=== PATIENT | male | born 1985 | race Caucasian/White ===

== ENCOUNTER 2019-10-14 18:10 | Emergency (ER) | payer SELFPAY ==
--- NOTE | ~2019-10-14 | XR_ITS ---
XR knee LT min 4V 10/14/2019 18:56 INDICATION: Left knee pain PROCEDURE: 4 views left knee COMPARISON: No prior studies for comparison. FINDINGS: Fracture, dislocation or subluxation is not identified. Small joint effusion. The soft tiss ues appear within normal limits. No foreign bodies are identified. IMPRESSION: 1: NO ACUTE BONE OR JOINT ABNORMALITY IDENTIFIED. Reviewed, dictated and finalized at location A. UREMENT CLERK
[2019-10-14 18:22] VITALS: BP 143/82; PULSE 102; RESP 18; TEMP 36.7; O2SAT 99
--- NOTE | 2019-10-14 19:10 | ED.LOWEXIN ---
HPI - Extremity Injury (Lower) General Chief Complaint: Extremity Injury, Lower Stated Complaint: Knee Pain Time Seen by Provider: 10/14/19 19:10 Source: patient Mode of arrival: ambulatory Limitations: no limitations History of Present Illness HPI Narrative: Eamon Bhatti is a 33 yo male with no PMH who comes to express care with c/o L knee pain. Playing around with friend and twisted knee. Related Data Allergies Allergy/AdvReac Type Severity Reaction Status Date / Time No Known Allergies Allergy Verified 10/14/19 18:13 Review of Systems Review of Systems: Narrative: CONSTITUTIONAL: Denies fever, chills, sweats. EYES: Denies visual changes, redness, discharge. ENT: Denies rhinorrhea, congestion, sore throat, otalgia. CARDIOVASCULAR: Denies chest pain, palpitations, edema. RESPIRATORY: Denies dyspnea, wheezing, cough GASTROINTESTINAL: Denies abdominal pain, nausea, vomiting, diarrhea. GENITOURINARY: Denies dysuria, hematuria, abnormal discharge SKIN: Denies rash or itching. NEUROLOGIC: Denies numbness, or focal weakness. PSYCHIATRIC: Denies anxiety or depression. Extremities: Left knee pain, pain on walking PMFSH Family History Family History (Updated 10/14/19 @ 19:16 by Yoana Flores CNP) Other No active medical problems Social History Social History (Updated 10/14/19 @ 19:16 by Yoana Flores CNP) Smoking status: Never smoker Alcohol intake: never Gender identity (if verbalized by the patient): Male Comments At time of signature, I agree with nursing past medical, surgical, social and family history. There is no relevant family history pertinent to the presenting complaint. Exam Narrative: Exam Narrative: GENERAL: This is a well-nourished, well-developed patient, in no apparent distress. HEAD: normocephalic, atraumatic. EYES: PERRL. Sclera clear/white. Vision is grossly intact. EARS: External ears normal, a. Hearing grossly intact. NOSE: External nose normal with no obvious nasal discharge, nares without redness, no rhinorrhea. THROAT: Mucous membranes moist, posterior pharynx clear. NECK: Neck supple, non-tender CARDIOVASCULAR: Regular rate and rhythm without murmurs, gallops, or rubs. RESPIRATORY: Clear to auscultation. Breath sounds equal bilaterally. No wheezes, rales, or rhonchi. GASTROINTESTINAL: Abdomen soft, non-tender, nondistended. SKIN: warm, intact with no suspicious lesions or rash, good texture and turgor. NEURO: awake, alert, and oriented to person, place and time. There were no obvious focal neurologic abnormalities. Steady gait EXTREMITIES: Normal range of motion. Pain on movement of left knee, pain on walking BACK: Nontender without deformity or crepitance. N Course Course Emergency Course: [id number] for acute pathology Elevated blood pressure noted-recommended follow-up Vital Signs Vital signs: Vital Signs Temperature 98.1 F 10/14/19 18:22 Pulse Rate 102 H 10/14/19 18:22 Respiratory Rate 18 10/14/19 18:22 Blood Pressure 143/82 H 10/14/19 18:22 Pulse Oximetry 99 10/14/19 18:22 Temperature 98.1 F 10/14/19 18:22 Pulse Rate 102 H 10/14/19 18:22 Respiratory Rate 18 10/14/19 18:22 Blood Pressure 143/82 H 10/14/19 18:22 Pulse Oximetry 99 10/14/19 18:22 MDM - Extremity Injury (Lower) Differential Diagnosis Differential diagnosis: Likely other (Left knee pain versus sprain versus tendon rupture) Discharge Plan Discharge Clinical Impression: Left knee sprain Qualifiers: Encounter type: initial encounter Involved ligament of knee: medial collateral ligament Qualified Code(s): S83.412A - Sprain of medial collateral ligament of left knee, initial encounter Patient Disposition: Home, Self-Care Condition: Stable Instructions: Knee Sprain (DC) Prescriptions: New ibuprofen 800 mg tablet 800 mg PO Q6H PRN (Reason: pain) Qty: 30 RF: 0 Follow-up/Referrals: UNKNOWN,DOCTOR [Primary Care Provider] - Stand
== END 2019-10-14 19:33 | disposition home or self-care (01) ==
PROVIDERS: Emergency Provider Nurse Practitioner
DX: S83.412A Sprain of medial collateral ligament of left knee, initial encounter (principal); X50.9XXA Other and unspecified overexertion or strenuous movements or postures, initial encounter
CPT/HCPCS: 73564; 99203; G0463

== ENCOUNTER 2019-11-25 19:20 | Emergency (ER) | payer SELFPAY ==
--- NOTE | ~2019-11-25 | US_ITS ---
EXAMINATION: US scrotum doppler EXAM DATE: 11/25/2019 20:39 INDICATION: Testicular pain. Left-sided. TECHNIQUE: Multiple grayscale and Doppler images of the testicles and scrotum were obtained bilateral ly. Comparison is made to prior examination from 03/19/2015. FINDINGS: Right testicle measures 5.0 x 2.1 x 3.3 cm and is morphologically normal. Low resistance Doppler brayden w confirmed. The epididymis is unremarkable. There is no hydrocele or varicocele. Left testicle measures 4.4 x 2.1 x 3.1 cm and is morphologically normal. Low resistance Doppler flow confirmed. The epididymis is edematous and hypervascular. There is no hydrocele or varicocele. IMPRESSION: 1. Left-sided epididymitis. Reviewed, dictated and finalized at location A. IMPRESSION: 1. Left-sided epididymitis.
[2019-11-25 19:27] VITALS: BP 124/94; PULSE 98; RESP 18; TEMP 36.7; O2SAT 100
--- NOTE | 2019-11-25 19:43 | ED.MALEGU ---
HPI - Male Genitourinary General Chief complaint: Urogenital-Male Stated complaint: testicle pain Time Seen by Provider: 11/25/19 19:22 Source: patient Mode of arrival: ambulatory Limitations: no limitations History of Present Illness HPI Narrative: The pt is a 33 y/o male who presents to the ED c/o left testicle pain onset 2-4 days ago. Pt staets that the pain improves when he sits down and worsens when he is moving. Pt notes that he discovered swelling there today. Pt denies dysuria, hematuria, fever, chills, productive cough, penile discharge, and difficulty with bowel movements. Pt also denies any STD concerns. Complaint: testicle pain Onset (ago): day(s) (2-4) Location: left testicle Relieving factors: other (Sitting down) Exacerbating factors: movement Associated symptoms: Reports swelling (Left testicle) Related Data Allergies Allergy/AdvReac Type Severity Reaction Status Date / Time No Known Allergies Allergy Verified 11/25/19 19:30 Review of Systems Review of Systems: All systems reviewed & are unremarkable except as noted in HPI and below Constitutional: Constitutional: Denies chills and Denies fever(s) Respiratory: Respiratory: Denies cough (Productive) Gastrointestinal: Gastrointestinal: Denies other (Difficulty with bowel movements) Genitourinary: Genitourinary: Denies hematuria, Denies dysuria, Denies penile discharge, Reports testicular pain (Left) and Reports other (Left testicular swelling) PMFSH Past Medical History Medical History (Updated 11/25/19 @ 21:24 by Simeon Leiva MD) No active medical problems Surgical History Surgical History (Updated 11/25/19 @ 19:46 by Leoncio Mendoza) No history of previous surgery Family History Family History (Updated 10/14/19 @ 19:16 by Yoana Flores CNP) Other No active medical problems Social History Social History (Updated 10/14/19 @ 19:16 by Yoana Flores CNP) Smoking status: Never smoker Alcohol intake: never Gender identity (if verbalized by the patient): Male Exam Narrative: Exam Narrative: GENERAL: Well-appearing, well-nourished, and in no acute distress. HEAD: Normocephalic, atraumatic. ENT: Mucous membranes moist. CHEST: Clear to auscultation. No respiratory distress. HEART: Regular rate and rhythm. Normal peripheral pulses. ABDOMEN: Soft, nontender, nondistended. : Normal appearing penis circumcised. No urethral discharge. No tenderness or swelling to the right testicle or epididymis/vas deferens. Left testicle with tenderness over the epididymis with swelling compared to the right. Moderate discomfort with palpation to the vas deferens. Normal lie. No inguinal hernia. EXTREMITIES: Normal range of motion. No edema. NEURO: Alert and oriented x3. Course Course Emergency Course: Informed of results. D/c home. Vital Signs Vital signs: Vital Signs Temperature 98.1 F 11/25/19 19:27 Pulse Rate 98 11/25/19 19:27 Respiratory Rate 18 11/25/19 19:27 Blood Pressure 124/94 H 11/25/19 19:27 Pulse Oximetry 100 11/25/19 19:27 Temperature 98.1 F 11/25/19 19:27 Pulse Rate 98 11/25/19 19:27 Respiratory Rate 18 11/25/19 19:27 Blood Pressure 124/94 H 11/25/19 19:27 Pulse Oximetry 100 11/25/19 19:27 MDM - Male Genitourinary Lab Data Labs: Lab Results 11/25/19 Range/Units 20:18 Urine Color Yellow (Yellow) Urine Appearance Clear (Clear) Urine pH 7.0 (5.0-9.0) Ur Specific [place] 1.020 (1.001-1.035) Urine Protein 1+ H (Negative) mg/dL Urine Glucose (UA) Negative (Negative) mg/dL Urine Ketones Negative (Negative) mg/dL Ur Blood (Man) Negative (Negative) Urine Nitrate Negative (Negative) Urine Bilirubin Negative (Negative) Urine Urobilinogen 4.0 H (<2.0) mg/dL Leukocyte Esterase Rfl 1+ H (Negative) [place]/UL Urine RBC 3-5 H (0-2) /hpf Urine WBC 31-50 H /hpf Urine Bacteria Trace /hpf Urine Mucus Rare /lpf Imaging
[2019-11-25] MEDS: MORPHINE SULFATE 4 MG/ML INJ IV PUSH (20:15)
[2019-11-25 20:28] LABS: Add Urine Microscopic? YES; Appearance Urine Clear (Clear); Bacteria Urine Trace /hpf; Bilirubin Urine Negative (Negative); Blood Urine Negative (Negative); Color Urine Yellow (Yellow); Glucose Urine UA Negative (Negative); Ketones Urine Negative (Negative); Leukocyte Esterase Ur 1+ LEU/UL (Negative); Mucus Urine Rare /lpf; Nitrate Urine Negative (Negative); Protein Urine 1+ mg/dL (Negative); WBC Urine 31-50 /hpf
--- NOTE | 2019-11-25 20:38 | PC.NURSE ---
pt down to ultrasound
[2019-11-25 21:57] VITALS: BP 130/84; PULSE 90; RESP 18; TEMP 36.8; O2SAT 99
== END 2019-11-25 22:00 | disposition home or self-care (01) ==
PROVIDERS: Emergency Provider Emergency Medicine
DX: N45.1 Epididymitis (principal)
CPT/HCPCS: 76870; 81001; 87086; 93976; 96374; 99284; J2270

== ENCOUNTER 2023-03-21 12:47 | Emergency (ER) | payer MEDICAID, SELFPAY ==
--- NOTE | ~2023-03-21 | CT_ITS ---
EXAMINATION: CT lumbar spine wo con DATE: 03/21/2023 16:23 INDICATION: low back pain, sciatica, new onset . TECHNIQUE: Computed tomography (CT) of the lumbar spine was performed without intravenous contrast. A utomated exposure control and iterative reconstruction technique were employed. The dose-length produ ct was 589.68 mGy-cm. COMPARISON: None. FINDINGS: 5 nonrib-bearing lumbar-type vertebral bodies. Pedicles intact. Normal vertebral body align ment. Vertebral body heights preserved. Mild disc space narrowing at L4-5. Moderate disc space narrow ing with a moderate diffuse bulge at L5-S1. Normal facets and posterior elements. Small left superior pole hemorrhagic or proteinaceous renal cyst. IMPRESSION: No acute fracture or traumatic malalignment in the lumbar spine. No severe central canal or neural foraminal narrowing. Reviewed, dictated and finalized at location K.
[2023-03-21 13:00] VITALS: BP 113/76; PULSE 109; RESP 16; TEMP 36.5; O2SAT 98
--- NOTE | 2023-03-21 15:46 | ED.BACK ---
HPI - Back Pain/Injury General Chief Complaint: Back Pain/Injury <Azra Mcintosh PA-C - Last Filed: 03/21/23 17:27> Stated Complaint: low back pain <Azra Mcintosh PA-C - Last Filed: 03/21/23 17:27> Time Seen by Provider: 03/21/23 15:32 <Azra Mcintosh PA-C - Last Filed: 03/21/23 17:27> History of Present Illness HPI Narrative: 37-year-old male reports for evaluation for low back pain x9 days. Patient states the pain started 9 days ago after he went from sitting to standing position and walking around the house. States he suddenly felt a sharp pain in his low back that is worse on the left side and at times causes a sharp type pain down his left leg. He was evaluated at [facility] and was sent home with naproxen and muscle relaxers without relief. Patient states he stopped taking the medications 2 days ago as they were not helping his pain. States he has been using IcyHot with some relief. Reports difficulty walking secondary to the pain, however he denies inability to walk. States the pain is worse when he is in a sitting position and with certain movements. He denies recent trauma or injury, IV drug use, steroid use or immunosuppression therapy, fever, nausea or vomiting, abdominal pain, hematuria or dysuria, saddle anesthesia, loss of bowel or bladder control or retention. States he had no imaging performed at [facility]. <Azra Mcintosh PA-C - Last Filed: 03/21/23 17:27> Related Data Allergies/Adverse Reactions: Allergies Allergy/AdvReac Type Severity Reaction Status Date / Time No Known Allergies Allergy Verified 11/25/19 19:30 <Azra Mcintosh PA-C - Last Filed: 03/21/23 17:27> Review of Systems Review of Systems: CONSTITUTIONAL: Denies fever, chills EYES: Denies visual changes, redness, or discharge. ENT: Denies rhinorrhea, congestion, sore throat, or otalgia. CARDIOVASCULAR: Denies chest pain, palpitations, or edema. RESPIRATORY: Denies cough or dyspnea. GASTROINTESTINAL: Denies abdominal pain, nausea, vomiting, or diarrhea. GENITOURINARY: Denies dysuria or hematuria. SKIN: Denies rash or itching. MUSCULOSKELETAL: See HPI NEUROLOGIC: Denies headache, numbness, dizziness, or weakness. PSYCHIATRIC: Denies anxiety or depression. <Azra Mcintosh PA-C - Last Filed: 03/21/23 17:27> [facility] Past Medical History Medical History: Medical History No active medical problems <Azra Mcintosh PA-C - Last Filed: 03/21/23 17:27> Surgical History Surgical History: Surgical History No history of previous surgery <Azra Mcintosh PA-C - Last Filed: 03/21/23 17:27> Family History Family History: Family History Other No active medical problems <Azra Mcintosh PA-C - Last Filed: 03/21/23 17:27> Social History Social History: Social History Smoking status: Never smoker Alcohol intake: never Gender identity (if verbalized by the patient): Male <Azra Mcintosh PA-C - Last Filed: 03/21/23 17:27> Exam Narrative: GENERAL: Well-appearing, in no acute distress. Patient resting comfortably in exam bed. He is pleasant conversational. HEAD: Normocephalic NECK: Supple. BACK: No midline thoracic spinous tenderness, step-offs or deformities. Tenderness to the lumbar spine without step-offs or deformities. No overlying skin changes. Tenderness to the left lumbar paraspinous muscles. No CVA tenderness. Positive left straight leg raise. Negative right straight leg raise. CHEST: No respiratory distress. Clear to auscultation, no adventitious breath sounds. HEART: Regular rate and rhythm. No murmur heard. Normal peripheral pulses. EXTREMITIES: Normal range of motion. No edema. SKIN: Warm, dry, no rash. N
[2023-03-21] MEDS: HYDROcodone/acetaminophen (*CRX) 5-325 MG TABLET 1 TAB PO (16:36)
[2023-03-21] MEDS: KETOROLAC 30 MG/ML VIAL (*BKC) IM (16:36)
[2023-03-21 17:27] VITALS: BP 122/77; PULSE 91; RESP 16
== END 2023-03-21 17:39 | disposition home or self-care (01) ==
PROVIDERS: Emergency Provider Physician Assistant
DX: M54.42 Lumbago with sciatica, left side (principal)
CPT/HCPCS: 72131; 96372; 99284; A9270; J1885